=== PATIENT | female | born 1990 | race Caucasian/White ===

== ENCOUNTER 2022-05-02 17:57 | Outpatient (CLI) | payer OTHER, SELFPAY ==
[2022-05-02 18:17] VITALS: BP 104/64; PULSE 93
[2022-05-02 18:30] VITALS: RESP 18; TEMP 37.1
[2022-05-02 18:59] LABS: Amnisure Rom* Negative
[2022-05-02 19:55] LABS: Appearance Urine Clear (Clear); Bilirubin Urine Negative (Negative); Blood Urine Negative (Negative); Color Urine Yellow (Yellow); Glucose Urine Negative (Negative); Ketones Urine Negative (Negative); Leukocyte Esterase Urine Negative (Negative); Nitrite Urine Negative (Negative); Protein Urine Negative (Negative); Specific Gravity Urine 1.025 (1.000-1.030); Urobilinogen Urine 0.2 (0.2-1.0)
[2022-05-02] MEDS: LACTATED RINGERS 1000 ML 500 ML IV (20:35)
--- NOTE | 2022-06-08 08:37 | PC.OBNST ---
NST Note NST Note Start: 05/02/22 18:03 Freq: ONCE Status: Discharge Protocol: Document 05/02/22 22:52 SORAYA (Rec: 05/02/22 23:01 SORAYA [id number]) NST Note 5 Para (# of births) 2 EDC 06/09/22 Patient Presented with Complaint(s) of Contractions/cramping Reactive Yes Appropriate for Gestational Age Yes LINETTE Humphreys RNC Date 05/02/22 Reactive Yes Appropriate for Gestational Age Yes RN Kevin Cervantes RN Date 05/02/22 OB NST charge Yes The provider's electronic signature indicates the NST is reactive/appropriate for gestational age. *Note to provider: If an addendum is required, open the patient's chart and click on the note under the Nurse/Allied Health tab.
== END 2022-05-02 22:50 | disposition home or self-care (01) ==
LOC: OB OUT 17:58 → OB 22:21
PROVIDERS: Visit Provider Obstetrics & Gynecology
DX: Z34.93 Encounter for supervision of normal pregnancy, unspecified, third trimester (principal)
CPT/HCPCS: 59025; 81003; 84112; 99211; J7120

== ENCOUNTER 2022-05-07 14:39 | Outpatient (CLI) | payer OTHER, SELFPAY ==
[2022-05-08 15:19] LABS: Strep B DNA Probe NEGATIVE (Negative)
== END 2022-05-07 14:40 | disposition home or self-care (01) ==
PROVIDERS: Visit Provider Registered Nurse
DX: Z34.90 Encounter for supervision of normal pregnancy, unspecified, unspecified trimester (principal)
CPT/HCPCS: 76816; 84112; 87081; 87653

== ENCOUNTER 2022-05-28 02:34 | Inpatient (IN) | payer OTHER, SELFPAY ==
[2022-05-27 23:55] VITALS: PULSE 86; O2SAT 99
[2022-05-27 23:57] VITALS: BP 125/69; PULSE 92
[2022-05-28] VITALS (200 sets, daily range): BP systolic 82–148; BP diastolic 44–75; PULSE 75–120; RESP 15–16; TEMP 36.6–37.5; O2SAT 97–100; BMI 22.5
[2022-05-28] MEDS: LIDOCAINE 2% (PF) 5 ML VIAL EPIDURAL (03:04)
[2022-05-28] MEDS: LACTATED RINGERS 1000 ML 1,000 ML 125 ML IV ×2 (03:04→04:14)
[2022-05-28] MEDS: ROPIVACAINE 0.2% 100 ml 100 ML 12 MG EPIDURAL (03:04)
--- NOTE | 2022-05-28 03:25 | P.ANBPRC_ITS ---
[facility] Medical History (Updated 05/06/22 @ 08:35 by Yaquelin Nova) History of History of anemia History of methicillin resistant Staphylococcus aureus infection (2007) History of hemorrhage History of syncope (2015) History of vaginal delivery (01/2016) Surgical History (Updated 05/06/22 @ 08:35 by Yaquelin Nova) History of appendectomy (2007) History of removal of cyst (2007) Family History (Updated 04/26/22 @ 15:35 by Yaquelin Nova) Other Breast cancer Cervical cancer Colon cancer Depression High blood pressure Hyperlipidemia Melanoma Ovarian cancer Sleep apnea Social History Smoking Status: Never smoker Meds Home Medications and Allergies Home Medications Medication Instructions Recorded Confirmed Type acetaminophen 500 mg tablet mg PO PRN 05/07/22 05/26/22 History calcium carbonate 200 mg calcium 200 mg PO BID 05/07/22 05/27/22 History (500 mg) chewable tablet (Tums) ferrous sulfate 325 mg (65 mg mg PO Q OTHER DAY tab 05/07/22 05/26/22 History iron) tablet prenat.vits,lucero,non-tdcp-wuufr 1 tab PO QDAY 05/07/22 05/27/22 History docusate sodium 100 mg tablet mg PO .qod tab 05/13/22 05/26/22 History Allergies Allergy/AdvReac Type Severity Reaction Status Date / Time cephalexin Allergy Unknown Verified 05/26/22 09:12 clarithromycin Allergy Unknown Verified 05/26/22 09:12 Amoxicillin Allergy Severe Hives Uncoded 05/26/22 09:12 Penicillin Allergy Unknown Uncoded 05/26/22 09:12 Results Labs Labs: Laboratory Results - last 24 hr 05/28/22 02:50 Hgb 10.0 L Vital Signs Vital Signs: Last Vital Signs Temp 98.8 F 05/28/22 00:16 Pulse 101 H 05/28/22 03:23 Resp 16 05/28/22 00:16 BP 126/74 05/28/22 03:25 Pulse Ox 100 05/28/22 03:13 Weight: 55.849 kg Height: 157.48 cm Anesthesia Procedures Epidural Insertion Patient Location: OB Start Time: 03:00 Stop Time: 03:30 Start Date: 05/28/22 Stop Date: 05/28/22 Reason for Block: primary anesthetic Patient Position: sitting Performed By: Arjun August Preanesthetic Checklist: IV checked, risks and benefits discussed, surgical consent, monitors and equipment checked, pre-op evaluation, timeout performed and anesthesia consent Prep: chlorhexidine gluconate Monitoring: blood pressure monitoring, personnel monitor, continuous pulse oximetry and heart rate Approach: midline Vertebral Space: lumbar (1-5) Needle Type: Tuohy needle Injection Technique: continuous catheter (catheter) Needle gauge: 17 Needle Length (cm): 10 cm Needle Insertion Depth (cm): 5 Catheter Gauge: 19 Catheter Type: multi-orifice Catheter at skin depth (cm): 10 Test Dose Result: negative and lidocaine 1.5% with epinephrine 1 to 200,000
--- NOTE | 2022-05-28 03:30 | P.LDBA_ITS ---
Subjective History of Present Illness Time Seen by Provider: 03:30 Date Seen: 05/28/22 Narrative: Patient is being admitted to Labor and Delivery for active labor. She is a 32 year old at 38.2 weeks gestation. Her full history and physical was dictated by Percy Childress on 05/19/22. Please see this for details. Pt states ctx started around 1999. Becoming stronger in intensity and closer together as the evening progressed. She arrived to triage, where she made some cervical change, and decision made to admit. Partner at bedside for support. G5, P2022 : Dylan EDC based on certain LMP consistent with u/s blood type: A negative 1. DHEERAJ x2 (1.7 x 1.2 x 1.1 cm and 2.4 x 0.4 x 2.2 cm) and possible dilated vessels adjacent to uterus measuring 6.5 mm on first OB u/s. Repeat u/s on 11/27/21: DHEERAJ: 7.7 x 5.0 x 1.0 cm; recommended pelvic rest and to avoid strenuous physical activity F/u u/s 12/23/21: decreased size subchorionic hemorrhage measures 2.0 x 0.5 x 0.4 cm: released from restrictions 2. H/o abnormal pap: Pap history: 11/24/20: NILM, negative HPV 07/16/19: ASC-H, +LSIL; colposcopy: biopsy: LILI 1, ECC: no diagnostic abnormality 07/2015: NIL 3. H/o MRSA in 2007. Patient reports she has been treated and cleared. 4. H/o PP depression after first delivery. Untreated. 5. Patient reports PP hemorrhage after first delivery. No transfusion. 6. H/o abuse. Declines to elaborate. 8. N+V at first OB: rx for zofran 9. Covid postive 11/15/21, quarantine ends 11/24/21 level 2 u/s (medically indicated): 01/20/2022 no anomalies, possible velamentous cord insertion Growth @ 32 weeks: EFW 4 lb 5 oz (78%), anterior placenta with posterior succenturiate lobe, and marginal cord insertion, SDP 5.9 cm testing @ 36 weeks: yes recommend IOL at 39 weeks: interested 10. Velamentous cord insertion. Ultrasound at 36 weeks: Umbilical cord insertion is more than 3 cm away from the edge of the anterior placental lobe. Smaller posterior placenta lobe again noted. The umbilical cord traverses the anterior aspect of the amniotic cavity. H&P by Amparo Childress CNM on 05/19/22 OB - H&P: Exam Physical Exam: Vital signs: Temp Pulse Resp BP Pulse Ox 98.8 F 110 H 16 110/59 L 100 05/28/22 00:16 05/28/22 03:29 05/28/22 00:16 05/28/22 03:05/28/22 03:13 Constitutional: Constitutional: no acute distress and cooperative Comments: Breathing through ctx on admit Routine HEENT Exam: Head: Present normal inspection and normocephalic Routine Neck Exam: Neck: Present full ROM Routine Respiratory Exam: Respiratory: Present CTA bilaterally Routine Cardiovascular Exam: Cardiovascular: RRR Detailed Labor and Delivery Exam: Patient Gravid: yes Dilation (cm): 4 Effacement (%): 80 Contraction frequency (min): 2 (1-3 mins) Contraction intensity: Moderate Comments: 4/80/-1 per RN Fetus (Single): Station: -1 Heart Rate Baseline: 135 Monitor Accelerations: Present Monitor Decelerations: None Lan Administrator Variability: Average (6-10) (mod variability) Routine Extremities Exam: Extremities: Present full ROM Routine Back/Spine/Pelvis Exam: Back/Spine: full ROM Routine Skin Exam: Present intact Routine Neurological Exam: Present alert and oriented X3 Routine Psychiatric Exam: Present normal affect OB - Problem Based A/P Additional Plan (1) Rh negative status during : Status: Acute (2) Active labor: Status: Acute (3) Velamentous insertion of umbilical cord: Status: Acute (4) Accessory placenta: Status: Acute Plan Assessment at 38.2 weeks GBS negative Hx of PP hemorrhage, did not require a transfusion Placenta abnormalities - accessory lobe, velamentous cord insertion, marginal cord insertion. Active labor Plan: 1. Admit to L & D 2. Candidate for analgesia of choice. Epidural just placed per pt request. 3. Expectant management at this time. Avoid AROM if able r/t cord insertion. 4. IV access r/t hx of hemorrhage 5. continuous monitoring r/t cord insertion 6. Plan AMTSL, consider TXA. Reviewed w/ pt, agrees w/ plan. 7. Pt planning to rest now that she is comfortable w/ epidural. 8. Anticipate progress to NVD Delivery/Labor/Induction Plan Plan: expectant management
[2022-05-28] MEDS: ONDANSETRON 2 MG/ML inj 4 MG IV (03:49)
[2022-05-28] MEDS: PHENYLEPHRINE 100 MCG/ML SYRINGE IVP ×5 (03:49→07:48)
[2022-05-28 03:50] LABS: SARS PCR* Negative SARS-CoV-2 (Negative)
[2022-05-28] MEDS: CALCIUM CARBONATE 500 MG CHEW PO ×2 (04:07→17:21)
[2022-05-28] MEDS: ePHEDrine sulfate 5 MG/ML inj 10 MG IVP ×4 (05:41→06:14)
[2022-05-28] MEDS: LACTATED RINGERS 1000 ML 1,000 ML 500 ML IV ×2 (06:47→15:07)
[2022-05-28] MEDS: OXYTOCIN 30 unit/500 ML in NS 30 UNIT/500 ML BAG IVPB (08:36)
--- NOTE | 2022-05-28 13:45 | PM.OBPNL ---
Pain Control Time Seen by Provider: 13:45 Date Seen: 05/28/22 Pain control: tolerating well and epidural Contractions Contraction frequency: 3 (1-3 mins) Contraction pattern: Regular Contraction intensity: Moderate Pelvic Exam Dilation (cm): 4 Effacement (%): 70 Station: -3 Fetus (Single) status: Category l Assessment and Plan Pitocin rate (mU/min): 6 Comments: Continue Pitocin augmentation. Rebolus epidural. Anticipate vaginal .
[2022-05-28] MEDS: ROPIVACAINE 0.2% 100 ml 100 ML 8 MG EPIDURAL (13:52)
[2022-05-28] MEDS: ACETAMINOPHEN 500 MG TABLET 1000 MG PO ×2 (14:14→21:13)
--- NOTE | 2022-05-28 16:40 | PM.OBPNL ---
Pain Control Time Seen by Provider: 16:40 Date Seen: 05/28/22 Pain control: tolerating well and epidural Contractions Monitor mode: External Contraction frequency: 3 (1-3 mins) Contraction pattern: Regular Contraction intensity: Moderate Pelvic Exam Dilation (cm): 5 Effacement (%): 70 Station: -2 Fetus (Single) Amniotic Membrane Status: AROM status: Category l Comments: clear, moderate Assessment and Plan Pitocin rate (mU/min): 11 Assessment: active labor Plan: continue present management
--- NOTE | 2022-05-28 20:04 | P.OBPRC_ITS ---
Procedure Procedure Done: Global Procedure Details: This 32yo 5 was admitted in early labor, and given epidural. Labor was augmented with Pitocin and AROM of clear fluid. After 20 minutes of pushing, she gave to a viable vigorous female at 38w2d GA. The [place] was dried and stimulated, then placed on maternal chest. After more than two minutes her cord stopped pulsing; it was clamped and cut by patient. Cord blood was collected because of maternal Rh negative status. Placenta delivered spontaneously. It consisted of two separate lobes attached only by amniotic membrane, with umbilical vessels to both lobes. Maternal examination revealed no lacerations. QBL 100mL. Patient and stable in room 204. Events: Other (anemia, hgb 10.0) Intrapartal Events: Labor Augmentation Delivery augmentation: rupture of membranes and pitocin Delivery monitor: external FHT and external uterine Route of delivery: Laceration description: None Disposition: no change Complications: None. Infant Gender: Female presentation: vertex Placental Delivery Description: Spontaneous Cord Description: 3 Vessels cord description comment: large completely separate accessory lobe. velamentous cord insertion.
[2022-05-29 00:34] VITALS: BP 111/70; PULSE 81; RESP 16; O2SAT 96
[2022-05-29] MEDS: IBUPROFEN 600 MG TABLET PO ×4 (00:41→21:13)
[2022-05-29 04:17] VITALS: BP 109/68; PULSE 85; RESP 16; TEMP 36.8; O2SAT 96
[2022-05-29] MEDS: ACETAMINOPHEN 500 MG TABLET 1000 MG PO ×3 (04:27→17:48)
[2022-05-29 07:39] VITALS: BP 110/68; PULSE 72; RESP 16; TEMP 36.6; O2SAT 97
[2022-05-29 07:46] LABS: Hemoglobin* 9.1 gm/dL (12.0-16.0)
[2022-05-29 12:48] VITALS: BP 96/59; PULSE 68; RESP 16; TEMP 36.5; O2SAT 97
--- NOTE | 2022-05-29 13:43 | PM.OBPNVD1 ---
OB - PN:Subj Subjective Time Seen by Provider: 13:43 Date Seen: 05/29/22 Interval history: 32yo para 3023, PPD 1 from spontaneous vaginal of 38w2d female yesterday. Lochia moderate, decreasing, with only few small clots. Voiding freely. Uterine cramps with ; daughter latching well. No other concerns. OB - PN: Obj Exam Physical Exam: Vital signs: Temp Pulse Resp BP Pulse Ox 97.7 F 68 16 96/59 L 97 05/29/22 12:48 05/29/22 12:48 05/29/22 12:48 05/29/22 12:48 05/29/22 12:48 Constitutional: Constitutional: no acute distress, thin and cooperative Routine HEENT Exam: Head: Present normal inspection Routine Neck Exam: Neck: Present full ROM Routine Respiratory Exam: Comments: Normal respirations. No cough. Routine Cardiovascular Exam: Comments: Normal BP and rate. No peripheral edema. Routine Abdominal Exam: Comments: Soft. Fundus below umbilicus, firm. Mild RUQ tenderness, worse with standing/walking. Routine Extremities Exam: Extremities: Present full ROM and normal inspection Routine Neurological Exam: Neurological: Present alert, CN II-XII intact and normal speech Routine Psychiatric Exam: Psychiatric: Present normal affect and normal thought process OB - PN: Obj Data Labs Labs: Laboratory Results - last 24 hr 05/28/22 05/29/22 02:50 07:19 Hgb 9.1 L Antibody Identification Anti-D Screen Negative OB - PN: A/P Vaginal Delivery Assessment and Plan (1) Rh negative status during : Problem details: FOB A+. Patient aware of need for Rh antibody. Status: Acute Assessment and Plan: RhIgG today. (2) Anemia affecting in third trimester: Problem details: Hgb drop from 10.0 antepartum to 9.1 today. Status: Acute Assessment and Plan: Patient asymptomatic. Continue oral FeSO4 supplementation for next 6w. Plan Plan: routine care Comments: Likely home tomorrow.
--- NOTE | 2022-05-29 14:08 | PM.OBPNVD1 ---
OB - PN:Subj Subjective Date Seen: 05/29/22 Interval history: 32yo para 3023, PPD 1 from spontaneous vaginal of 38w2d female yesterday. Lochia moderate, decreasing, with only few small clots. Voiding freely. Uterine cramps with ; daughter latching well. No other concerns. OB - PN: Obj Exam Physical Exam: Vital signs: Temp Pulse Resp BP Pulse Ox 97.7 F 68 16 96/59 L 97 05/29/22 12:48 05/29/22 12:48 05/29/22 12:48 05/29/22 12:48 05/29/22 12:48 OB - PN: Obj Data Labs Labs: Laboratory Results - last 24 hr 05/28/22 05/29/22 02:50 07:19 Hgb 9.1 L Antibody Identification Anti-D Screen Negative OB - PN: A/P Vaginal Delivery Assessment and Plan (1) Rh negative status during : Problem details: A+. Patient aware of need for Rh antibody. Status: Acute Assessment and Plan: RhIgG today. (2) Anemia affecting in third trimester: Problem details: Hgb drop from 10.0 antepartum to 9.1 today. Asymptomatic. Status: Acute Assessment and Plan: Continue current oral FeSO4 supplementation, plus high-iron foods. Plan Plan: routine care Comments: Likely home tomorrow.
[2022-05-29 16:07] VITALS: BP 107/68; PULSE 76; RESP 16; TEMP 36.6; O2SAT 97
[2022-05-29 16:13] VITALS: BP 107/68; PULSE 76; RESP 16; TEMP 36.6; O2SAT 97
[2022-05-30 00:37] VITALS: BP 104/64; PULSE 70; RESP 16; TEMP 36.6; O2SAT 97
[2022-05-30] MEDS: ACETAMINOPHEN 500 MG TABLET 1000 MG PO ×2 (00:41→07:52)
[2022-05-30] MEDS: IBUPROFEN 600 MG TABLET PO ×2 (04:22→10:52)
[2022-05-30 08:16] VITALS: BP 110/71; PULSE 70; RESP 16; TEMP 36.3; O2SAT 98
--- NOTE | 2022-05-30 10:24 | P.DS_ITS ---
DS: Providers Provider Time Seen by Provider: 10:25 Date Seen: 05/30/22 Date of admission: 05/28/22 02:34 Primary care physician: Not a Local Provider Admitting Clinician: Malou Aguila CNM Attending Physician on discharge: Wolf Clayton MD Date of Discharge: 05/30/22 DS: Diagnosis Discharge Diagnosis (1) Normal delivery at term: Status: Acute Problem details: Viable vigorous female. (2) Velamentous insertion of umbilical cord: Status: Acute Problem details: Awaiting Pathology evaluation. (3) Rh negative status during : Status: Acute Problem details: A+. Patient received Rh antibody. (4) due to : Status: Acute Problem details: starting well. (5) Anemia affecting in third trimester: Status: Acute Problem details: Hgb drop from 10.0 antepartum to 9.1 today. Asymptomatic. Exam Const: Vital Signs, click to edit/add: Vital Signs - 24 hr 05/29/22 12:48 05/29/22 16:07 05/29/22 16:13 Temperature 97.7 F 97.8 F 97.8 F Pulse Rate 76 Pulse Rate [Pulse Oximeter] 68 76 Respiratory Rate 16 16 16 Blood Pressure 107/68 Blood Pressure [Le ft Arm] 96/59 L 107/68 Pulse Oximetry 97 97 97 05/30/22 00:37 05/30/22 08:16 Temperature 97.8 F 97.3 F L Pulse Rate Pulse Rate [Pulse Oximeter] 70 70 Respiratory Rate 16 16 Blood Pressure Blood Pressure [Le ft Arm] 104/64 110/71 Pulse Oximetry 97 98 Documenting provider has reviewed patient's vital signs: yes Common normals: no apparent distress General appearance: cooperative and comfortable Nutritional appearance: thin HENMT: Common normals: normocephalic Head and scalp: normocephalic Neck & C-Spine: Common normals: full ROM Resp: Common normals: normal respiratory effort and no use of accessory muscles Cardio: Common normals: regular rate and peripheral pulses 2+ throughout Rate: regular rate Peripheral pulses: pulses 2+ throughout Extremity: Common normals: normal to inspection and no calf tenderness Neuro: Common normals: CN's II-XII intact bilaterally Psych: Common normals: thought process normal, cooperative and affect normal Thought process: normal thought process OB - DS: Summary Hospital Course Hospital Course: Hazel is a 32yo now para 3023 who was admitted to the Center on 05/28/22 for normal labor. She had an uncomplicated vaginal delivery of a viable vigorous female , who is breast feeding well. Antepartum sonogram identified placental abnormalities. At delivery, placenta was intact; it was sent for Pathology examination. Delivery EBL minimal. Patient continuing oral iron . is Rh+, so Hazel received Rh IgG. the patient has done well. Lochia decreasing. Pain controlled. GI/bowel, bladder functions normal. Peripartum Data Infant delivery method: Vaginal Laceration description: None complications: none Gender: Female Discharge Plan: Home Status at Discharge Functional status at discharge: independent ambulation Overall status at discharge: patient is back to baseline Time Spent with Patient Time attestation: Total time spent providing and/or coordinating discharge services: Discharge Plan Discharge Disposition: Home, Self-Care Date of Admission: 05/28/22 02:34 Attending Provider on Discharge: Wolf Clayton Primary Care Provider: Provider,Not a Local Condition: Stable Anticipated Discharge Date/Time: 05/30/22 10:49 Discharge Medications: New bisacodyl [Gentle Laxative (bisacodyl)] 5 mg Tablet,Delayed Release (Dr/Ec) 5 mg PO Q12H PRN (Reason: constipation) Qty: 30 0RF ibuprofen 600 mg Tablet 600 mg PO Q6H Qty: 90 0RF pramoxine 1 % Foam 1 applic topical QID PRNQty: 15 0RF Lanolin (HPA) 100 % Cream 1 applic topical Q1H PRNQty: 47 0RF Continued acetaminophen 500 mg tablet PO PRN0RF Rx Instructions: NO MORE THAN 4000 MG/DAY ferrous sulfate 325 mg (65 mg iron) tablet PO Q OTHER DAY 0RF prenat.vits,lucero,aye-lvxq-gvaua Tablet 1 tab PO QDAY 0RF calcium carbonate [Tums] 200 mg calcium (500 mg) tablet,chewable 200 mg PO BID 0RF Discontinued docusate sodium 100 mg tablet PO .qod 0RF Discharge Orders: Discharge Order (Routine); Ordered 05/30/22 Ordered By: Wolf Clayton Patient Education: OB Vaginal/Breast Feeding Activity Level: Activity as Tolerated Discharge Diet: High Fiber Follow Up Appointments: Provider,Not a Local [Primary Care Provider] - 07/12/22 Malou Aguila CNM [Certified Nurse Sunglass Clip Attacher] - 07/12/22 Forms: MyHealth Info Instructions
== END 2022-05-30 12:10 | disposition home or self-care (01) | DRG 807 ==
LOC: OB OUT 02:36 → OB 02:36
PROVIDERS: Obstetrics & Gynecology; Admitting Provider Advanced Practice Midwife; Visit Provider Advanced Practice Midwife
DX: O43.123 Velamentous insertion of umbilical cord, third trimester (principal); Z37.0 Single live birth; O43.193 Other malformation of placenta, third trimester; O99.02 Anemia complicating childbirth; D64.9 Anemia, unspecified; Z86.16 Personal history of COVID-19; Z3A.38 38 weeks gestation of pregnancy
CPT/HCPCS: 01967; 36415; 85018; 85461; 86850; 86870; 86880; 86900; 86901; 87635; 88307; 99213; A9270; J2370; J2405; J2791; J2795; J7120